=== PATIENT | female | born 1970 | race Caucasian/White ===

== ENCOUNTER 2021-08-24 17:13 | Outpatient (REF) | payer BC, SELFPAY ==
[2021-08-24 18:38] LABS: Influenza A PCR NEGATIVE (Negative); Influenza B PCR NEGATIVE (Negative); Resp Syncy Virus RNA Qual PCR NEGATIVE (Negative); SARS COV2 PCR INHOUSE POSITIVE (Negative)
== END 2021-08-24 17:14 | disposition home or self-care (01) ==
LOC: HO.LNP 17:13
PROVIDERS: Visit Provider Physician Assistant Medical
DX: Z20.822 Contact with and (suspected) exposure to COVID-19 (principal); J06.9 Acute upper respiratory infection, unspecified
CPT/HCPCS: 0241U